=== PATIENT | male | born 1995 | race Caucasian/White ===

== ENCOUNTER 2020-10-02 03:24 | Observation (INO) ==
[2020-10-02] MEDS ORDERED: SODIUM CHLORIDE 0.9% 1000ML 1,000 ML IV SCH (03:45)
[2020-10-02 03:56] LABS: Basophils # (auto) 0.05 K/uL (0-0.2); Basophils % (auto) 0.5 %; Eosinophils # (auto) 0.11 K/uL (0-0.5); Eosinophils % (auto) 1.2 %; Hematocrit (blood only) 51.4 % (42-52); Hemoglobin 17.6 g/dL (14.0-18.0); Immature Granulocytes # (auto) 0.04 K/uL (0.00-0.02); Immature Granulocytes % (auto) 0.4 %; Lymphocytes # (auto) 2.25 K/uL (1.2-3.4); Lymphocytes % (auto) 24.3 %; Mean Corpuscular Hemoglobin 29.7 pg (25-34); Mean Corpuscular Hgb Conc 34.2 g/dL (32-36); Mean Corpuscular Volume 86.7 fL (80-100); Mean Platelet Volume 10.3 fL (7.4-10.4); Monocytes # (auto) 0.84 K/uL (0.11-0.59); Monocytes % (auto) 9.1 %; Neutrophils # (auto) 5.96 K/uL (1.4-6.5); Neutrophils % (auto) 64.5 %; Platelet Count 229 K/uL (130-400); RDW Coefficient of Variation 13.2 % (11.5-14.5); RDW Standard Deviation 41.9 fL (36.4-46.3); Red Blood Count 5.93 M/uL (4.7-6.1); White Blood Count 9.25 K/uL (4.8-10.8)
[2020-10-02 04:11] LABS: INR 1.1 (0.9-1.1); Partial Thromboplastin Ratio 1.1; Partial Thromboplastin Time 29.3 Seconds (21.0-31.0); Prothrombin Time 11.1 Seconds (9.0-12.0)
[2020-10-02 04:16] LABS: Alanine Aminotransferase 119 U/L (12-78); Albumin Level 4.1 gm/dl (3.4-5.0); Aspartate Aminotransferase 46 U/L (15-37); BUN Creatinine Ratio 15.3 (10-20); Blood Urea Nitrogen 17 mg/dl (7-18); Calcium 8.6 mg/dl (8.5-10.1); Carbon Dioxide 26 mmol/L (21-32); Chloride 108 mmol/L (98-107); Est GFR (African American) 102.3; Est GFR (Non-African American) 88.3; Glucose 106 mg/dl (70-99); Magnesium 2.4 mg/dl (1.8-2.4); Sodium 139 mmol/L (136-145)
[2020-10-02 04:27] LABS: Albumin Globulin Ratio 1.2 (0.9-2); Alkaline Phosphatase 97 U/L (45-117); Bilirubin,Total 0.5 mg/dl (0.2-1); C Reactive Protein 0.49 mg/dl (0-0.29); Globulin 3.5 gm/dl (2.5-4.0); Total Protein 7.6 gm/dl (6.4-8.2); Troponin I < 0.015 ng/ml (0-0.045)
[2020-10-02 05:02] LABS: Lyme Ab IgG w/WB Rflx Negative (Negative); Lyme Ab IgM w/WB Rflx Negative (Negative)
[2020-10-02 05:21] LABS: Appearance Urine Clear (Clear); Bilirubin Urine Negative (Negative); Blood Urine Negative (Negative); Color Urine Yellow; Glucose Urine UA Negative (Negative); Ketones Urine Negative (Negative); Leukocyte Esterase Urine Negative (Negative); Nitrite Urine Negative (Negative); Protein Urine Negative (Negative); Specific Gravity Urine 1.012 (1.000-1.030); Urobilinogen Urine Negative (Negative); pH Urine 5.5 (4.5-7.5)
[2020-10-02 05:41] LABS: Amphetamines+Metham, Urine Neg (Neg); Barbiturates, Urine Neg (Neg); Benzodiazepine, Urine Neg (Neg); Cocaine, Urine Neg (Neg); MDMA (Ecstacy), Urine Neg (Neg); Methadone, Urine Neg (Neg); Opiate, Urine Neg (Neg); Phencyclidine, Urine Neg (Neg)
[2020-10-02] MEDS ORDERED: GADOBUTROL 65ML VIAL IV ONE ×2 (06:09→22:16)
--- NOTE | 2020-10-02 06:48 | Emergency Department Note ---
History of Present Illness General Chief complaint: Illness Stated complaint: ILL- HAVING TROUBLE TALKING,FACE DROOPY Time Seen by Provider: 10/02/20 03:36 History of Present Illness This is a 25 year old male presenting to the emergency department for evaluation of slurring of his speech and possible facial droop. The patient has a history of Fzyasfr-Yrcxf-Uxhov disease and has had 2 episodes in the past similar to this. His first was in 2004 and occurred about 1 month after he had an appendectomy. The second was in 2008 occurring roughly 3 weeks after diagnosis of infectious mononucleosis. The patient believes that he may have had COVID-19 1 month ago when his Dad tested positive, but he himself did not get tested. The 2 previous times he has had slurring of his speech he ended up admitted to [facility] in [place] and required high doses of steroids, similar to treatment of a multiple sclerosis flare, and ultimately returned to normal. The patient was previously following with pediatric neurology, but now that he is an adult has not followed with anyone recently. He has had multiple MRIs in the past, which have shown findings "most likely represent encephalopathy associ ated with Tfkhmhc-Gveqe-Zjrbf disease". The patient states that his symptoms began roughly 1 hour prior to arrival and have almost completely improved now that he is here in the ER. He has not had any fevers or chills. He has not had any difficulty moving his arms or legs. No chest pain, chest tightness, shortness of breath. Home Medications Medication Instructions Recorded Confirmed Type No Known Home Medications 10/02/20 10/02/20 History Allergies Allergy/AdvReac Type Severity Reaction Status Date / Time amoxicillin Allergy HIVES Verified 10/02/20 04:18 clavulanic acid Allergy HIVES Verified 10/02/20 04:18 Past Med/Surg History Medical History (Updated 10/03/20 @ 03:04 by Brian Ballesteros PA-C) Gbjpals-Rouan-Slpqe disease Leukoencephalopathy Surgical History History of appendectomy Family History (Updated 10/02/20 @ 09:16 by Checo Gold DO) Other Family history non-contributory Social History (Updated 10/02/20 @ 09:18 by Checo G. Case, DO) Smoking Status: Current some day smoker Second Hand Exposure: No; Do You Dip or Chew Tobacco: No; Tobacco Cessation Education Requested by Patient: No Hx Alcohol Use: Yes Alcohol type: hard liquor Hx Substance Use: Yes Non-Prescribed Medications: Marijuana Last Used Trent bstance: Unknown Preferred Language: Urdu Communication Ability: Effective Paste Thinner Required: No Beliefs That Will Affect Care: None Current Living Situation: Parent Other Information That Helps Us Care for You: No Feels Safe at Home: Yes Safety Concerns: Feels Safe At This Time Assistive Devices: None Review of Systems A total of 10 systems reviewed and were otherwise negative Physical Exam Vital Signs Vital Signs - 24 hr 10/02/20 03:28 10/02/20 04:16 10/02/20 06:12 Temperature 36.3 C L Temperature Source Temporal Artery Scan Pulse Rate 81 Pulse Rate [Apical] 79 89 Pulse Rhythm Regular Pulse Rhythm [Apical] Pulse Strength Normal Respiratory Rate 20 20 18 Respiratory Effort / Characteristics Non-Labored Spontaneous Non-Labored Spontaneous Non-Labored Spontaneous Respiratory Depth Normal Normal Normal Respiratory Pattern Regular Blood Pressure 143/84 H Blood Pressure [Left Arm] 138/76 135/85 Blood Pressure Mean 103 Blood Pressure Mean [Left Arm] 96 101 Blood Pressure Position Sitting Blood Pressure Position [Left Arm] Sitting Pulse Oximetry 97 97 96 Oxygen Delivery Method Room Air Room Air Room Air Sepsis Recent Fever Within 48 Hours No Sepsis New/Unexplained Change in Mental Status N/A Sepsis Action Taken by Nursing No Action Required 10/02/20 07:29 10/02/20 08:21 10/02/20 08:30 Temperature Temperature Source Pulse Rate 75 Pulse Rate [Apical] 81 76 Pulse Rhythm Pulse Rhythm [Apical] Regular Pulse Strength Respiratory Rate 16 16 16 Respiratory Effort / Characteristics Non-Labored Spontaneous Non-Labored Spontaneous Respiratory Depth Normal Normal Respiratory Pattern Blood Pressure 129/77 Blood Pressure [Left Arm] 126/65 116/81 Blood Pressure Mean 97 Blood Pressure Mean [Left Arm] 85 92 Blood Pressure Position Blood Pressure Position [Left Arm] Sitting Pulse Oximetry 97 98 97 Oxygen Delivery Method Room Air Room Air Sepsis Recent Fever Within 48 Hours Sepsis New/Unexplained Change in Mental Status Sepsis Action Taken by Nursing 10/02/20 09:01 Temperature Temperature Source Pulse Rate Pulse Rate [Apical] Pulse Rhythm Pulse Rhythm [Apical] Pulse Strength Respiratory Rate Respiratory Effort / Characteristics Respiratory Depth Respiratory Pattern Blood Pressure 134/74 Blood Pressure [Left Arm] Blood Pressure Mean 87 Blood Pressure Mean [Left Arm] Blood Pressure Position Blood Pressure Position [Left Arm] Pulse Oximetry Oxygen Delivery Method Sepsis Recent Fever Within 48 Hours Sepsis New/Unexplained Change in Mental Status Sepsis Action Taken by Nursing VITALS: Vitals are noted on the nurse's note and reviewed by myself. Vital signs stable. GENERAL: Well-developed, well-nourished, white male, who is in no acute distress and resting comfortably. Patient is cooperative with the examination. HEAD: Normocephalic atraumatic. EARS: External ear normal. External auditory canals clear, tympanic membranes pearly reddy without erythema or effusion bilaterally. EYES: Pupils equal round and reactive to light and accommodation. Conjunctivae without injection, sclerae without icterus. Extraocular movements intact. NOSE: Patent, turbinates without inflammation or discharge. MOUTH: Mucous membranes moist. Tonsils are not enlarged. Pharynx without erythema, blood, or exudate. Uvula midline. Airway patent. NECK: Supple without nuchal rigidity. No lymphadenopathy. No thyromegaly. Cervical spine is nontender. HEART: Regular rate and rhythm without murmurs gallops or rubs. LUNGS: Clear to auscultation bilaterally without wheezes, rales or rhonchi. No retractions or accessory muscle use. ABDOMEN: Positive normal bowel sounds x 4. Soft, nontender, without masses or organomegaly. No guarding or rebound tenderness. MUSCULOSKELETAL: No muscle atrophy, erythema, or edema noted. Full range of motion in all extremities. No tenderness to palpation. Strength 5/5 throughout. NEURO: Patient was alert and oriented to person place and time. CN II through XII grossly intact. No focal neurological deficits. Deep tendon reflexes 2+ throughout. Stroke scale 0. SKIN: The skin was without rashes, erythema, edema, or bruising. Capillary refill less than 2 seconds. Course Administered Medications Discontinued Medications Gadobutrol (Gadobutrol 65ml Vial) 9.8 ml IV ONCE ONE Stop: 10/02/20 06:10 Last Admin: 10/02/20 05:55 Dose: 9.8 ml Documented by: [id number] Gadobutrol (Gadobutrol 65ml Vial) 9.8 ml IV ONCE ONE Stop: 10/02/20 22:17 Last Admin: 10/02/20 22:17 Dose: 9.8 ml Documented by: [id number] Sodium Chloride (Nss 1000ml) 1,000 mls @ 999 mls/hr IV .Q1H1M VITA Stop: 10/02/20 04:45 Last Infusion: 10/02/20 04:50 Dose: 0 mls/hr Documented by: [id number] Admin: 10/02/20 03:55 Dose: 999 mls/hr Documented by: [id number] Medical Decision Making Differential Diagnosis The differential diagnosis includes, but is not limited to: Stroke, chronic neurologic disease, MS, acute intracranial bleed, meningitis, encephalitis, mass or mass effect, sinusitis, infection, tumor, headache, temporal arteritis and carbon monoxide exposure, and migraine. Laboratory Data Result diagrams: 10/02/20 03:30 10/02/20 03:30 Lab Results 10/02/20 10/02/20 10/02/20 Range/Units 03:30 03:30 03:30 WBC 9.25 (4.8-10.8) K/uL RBC 5.93 (4.7-6.1) M/uL Hgb 17.6 (14.0-18.0) g/dL Hct 51.4 (42-52) % MCV 86.7 (80-100) fL MCH 29.7 (25-34) pg MCHC 34.2 (32-36) g/dL RDW Std Deviation 41.9 (36.4-46.3) fL RDW Coeff of Jewel 13.2 (11.5-14.5) % Plt Count 229 (130-400) K/uL MPV 10.3 (7.4-10.4) fL Immature Gran % (Auto) 0.4 % Neut % (Auto) 64.5 % Lymph % (Auto) 24.3 % Glenn % (Auto) 9.1 % Eos % (Auto) 1.2 % Baso % (Auto) 0.5 % Neut # (Auto) 5.96 (1.4-6.5) K/uL Lymph # (Auto) 2.25 (1.2-3.4) K/uL Glenn # (Auto) 0.84 H (0.11-0.59) K/uL Eos # (Auto) 0.11 (0-0.5) K/uL Baso # (Auto) 0.05 (0-0.2) K/uL Immature Gran # (Auto) 0.04 H (0.00-0.02) K/uL ESR 2 (0-14) mm/hr PT 11.1 (9.0-12.0) Seconds INR 1.1 (0.9-1.1) APTT 29.3 (21.0-31.0) Seconds PTT Ratio 1.1 Sodium (136-145) mmol/L Potassium (3.5-5.1) mmol/L Chloride (98-107) mmol/L Carbon Dioxide (21-32) mmol/L Anion Gap (3-11) BUN (7-18) mg/dl Creatinine (0.6-1.4) mg/dl Est Cr Clr Drug Dosing ml/min Est GFR ( Amer) Est GFR (Non-Af Amer) BUN/Creatinine Ratio (10-20) Glucose (70-99) mg/dl Calcium (8.5-10.1) mg/dl Magnesium (1.8-2.4) mg/dl Total Bilirubin (0.2-1) mg/dl AST (15-37) U/L ALT (12-78) U/L Alkaline Phosphatase (45-117) U/L Troponin I (0-0.045) ng/ml C-Reactive Protein (0-0.29) mg/dl Total Protein (6.4-8.2) gm/dl Albumin (3.4-5.0) gm/dl Globulin (2.5-4.0) gm/dl Albumin/Globulin Ratio (0.9-2) TSH (0.300-4.500) uIu/ml Free T4 (0.8-1.6) ng/dl Specimen Hemolysis Urine Color Urine Appearance (Clear) Urine pH (4.5-7.5) Ur Specific [place] (1.000-1.030) Urine Protein (Negative) Urine Glucose (UA) (Negative) Urine Ketones (Negative) Urine Blood (Negative) Urine Nitrite (Negative) Urine Bilirubin (Negative) Urine Urobilinogen (Negative) Ur Leukocyte Esterase (Negative) Urine Opiates Screen (Neg) Ur Methadone, Qual (Neg) Urine Barbiturates (Neg) Ur Phencyclidine (PCP) (Neg) U Amphetamin/Meth Scrn (Neg) MDMA (Ecstasy) Screen (Neg) U Benzodiazepines Scrn (Neg) Ur Cocaine Metabolite (Neg) U Marijuana (THC) Screen (Neg) Ethyl Alcohol mg/dL (0-3) mg/dl Lyme Disease IgG Ab (Negative) Lyme Disease IgM Ab (Negative) SARS-CoV-2 Ag (Rapid) (Negative) 10/02/20 10/02/20 10/02/20 Range/Units 03:30 03:30 03:55 WBC (4.8-10.8) K/uL RBC (4.7-6.1) M/uL Hgb (14.0-18.0) g/dL Hct (42-52) % MCV (80-100) fL MCH (25-34) pg MCHC (32-36) g/dL RDW Std Deviation (36.4-46.3) fL RDW Coeff of Jewel (11.5-14.5) % Plt Count (130-400) K/uL MPV (7.4-10.4) fL Immature Gran % (Auto) % Neut % (Auto) % Lymph % (Auto) % Glenn % (Auto) % Eos % (Auto) % Baso % (Auto) % Neut # (Auto) (1.4-6.5) K/uL Lymph # (Auto) (1.2-3.4) K/uL Glenn # (Auto) (0.11-0.59) K/uL Eos # (Auto) (0-0.5) K/uL Baso # (Auto) (0-0.2) K/uL Immature Gran # (Auto) (0.00-0.02) K/uL ESR (0-14) mm/hr PT (9.0-12.0) Seconds INR (0.9-1.1) APTT (21.0-31.0) Seconds PTT Ratio Sodium 139 (136-145) mmol/L Potassium 4.0 (3.5-5.1) mmol/L Chloride 108 H (98-107) mmol/L Carbon Dioxide 26 (21-32) mmol/L Anion Gap 5.0 (3-11) BUN 17 (7-18) mg/dl Creatinine 1.14 (0.6-1.4) mg/dl Est Cr Clr Drug Dosing 122.0 ml/min Est GFR ( Amer) 102.3 Est GFR (Non-Af Amer) 88.3 BUN/Creatinine Ratio 15.3 (10-20) Glucose 106 H (70-99) mg/dl Calcium 8.6 (8.5-10.1) mg/dl Magnesium 2.4 (1.8-2.4) mg/dl Total Bilirubin 0.5 (0.2-1) mg/dl AST 46 H (15-37) U/L ALT 119 H (12-78) U/L Alkaline Phosphatase 97 (45-117) U/L Troponin I < 0.015 (0-0.045) ng/ml C-Reactive Protein 0.49 H (0-0.29) mg/dl Total Protein 7.6 (6.4-8.2) gm/dl Albumin 4.1 (3.4-5.0) gm/dl Globulin 3.5 (2.5-4.0) gm/dl Albumin/Globulin Ratio 1.2 (0.9-2) TSH 4.560 H (0.300-4.500) uIu/ml Free T4 1.30 (0.8-1.6) ng/dl Specimen Hemolysis Urine Color Urine Appearance (Clear) Urine pH (4.5-7.5) Ur Specific [place] (1.000-1.030) Urine Protein (Negative) Urine Glucose (UA) (Negative) Urine Ketones (Negative) Urine Blood (Negative) Urine Nitrite (Negative) Urine Bilirubin (Negative) Urine Urobilinogen (Negative) Ur Leukocyte Esterase (Negative) Urine Opiates Screen (Neg) Ur Methadone, Qual (Neg) Urine Barbiturates (Neg) Ur Phencyclidine (PCP) (Neg) U Amphetamin/Meth Scrn (Neg) MDMA (Ecstasy) Screen (Neg) U Benzodiazepines Scrn (Neg) Ur Cocaine Metabolite (Neg) U Marijuana (THC) Screen (Neg) Ethyl Alcohol mg/dL < 3.0 (0-3) mg/dl Lyme Disease IgG Ab Negative (Negative) Lyme Disease IgM Ab Negative (Negative) SARS-CoV-2 Ag (Rapid) (Negative) 10/02/20 10/02/20 10/02/20 Range/Units 05:10 05:10 08:21 WBC (4.8-10.8) K/uL RBC (4.7-6.1) M/uL Hgb (14.0-18.0) g/dL Hct (42-52) % MCV (80-100) fL MCH (25-34) pg MCHC (32-36) g/dL RDW Std Deviation (36.4-46.3) fL RDW Coeff of Jewel (11.5-14.5) % Plt Count (130-400) K/uL MPV (7.4-10.4) fL Immature Gran % (Auto) % Neut % (Auto) % Lymph % (Auto) % Glenn % (Auto) % Eos % (Auto) % Baso % (Auto) % Neut # (Auto) (1.4-6.5) K/uL Lymph # (Auto) (1.2-3.4) K/uL Glenn # (Auto) (0.11-0.59) K/uL Eos # (Auto) (0-0.5) K/uL Baso # (Auto) (0-0.2) K/uL Immature Gran # (Auto) (0.00-0.02) K/uL ESR (0-14) mm/hr PT (9.0-12.0) Seconds INR (0.9-1.1) APTT (21.0-31.0) Seconds PTT Ratio Sodium (136-145) mmol/L Potassium (3.5-5.1) mmol/L Chloride (98-107) mmol/L Carbon Dioxide (21-32) mmol/L Anion Gap (3-11) BUN (7-18) mg/dl Creatinine (0.6-1.4) mg/dl Est Cr Clr Drug Dosing ml/min Est GFR ( Amer) Est GFR (Non-Af Amer) BUN/Creatinine Ratio (10-20) Glucose (70-99) mg/dl Calcium (8.5-10.1) mg/dl Magnesium (1.8-2.4) mg/dl Total Bilirubin (0.2-1) mg/dl AST (15-37) U/L ALT (12-78) U/L Alkaline Phosphatase (45-117) U/L Troponin I (0-0.045) ng/ml C-Reactive Protein (0-0.29) mg/dl Total Protein (6.4-8.2) gm/dl Albumin (3.4-5.0) gm/dl Globulin (2.5-4.0) gm/dl Albumin/Globulin Ratio (0.9-2) TSH (0.300-4.500) uIu/ml Free T4 (0.8-1.6) ng/dl Specimen Hemolysis Urine Color Yellow Urine Appearance Clear (Clear) Urine pH 5.5 (4.5-7.5) Ur Specific [place] 1.012 (1.000-1.030) Urine Protein Negative (Negative) Urine Glucose (UA) Negative (Negative) Urine Ketones Negative (Negative) Urine Blood Negative (Negative) Urine Nitrite Negative (Negative) Urine Bilirubin Negative (Negative) Urine Urobilinogen Negative (Negative) Ur Leukocyte Esterase Negative (Negative) Urine Opiates Screen Neg (Neg) Ur Methadone, Qual Neg (Neg) Urine Barbiturates Neg (Neg) Ur Phencyclidine (PCP) Neg (Neg) U Amphetamin/Meth Scrn Neg (Neg) MDMA (Ecstasy) Screen Neg (Neg) U Benzodiazepines Scrn Neg (Neg) Ur Cocaine Metabolite Neg (Neg) U Marijuana (THC) Screen Pos H (Neg) Ethyl Alcohol mg/dL (0-3) mg/dl Lyme Disease IgG Ab (Negative) Lyme Disease IgM Ab (Negative) SARS-CoV-2 Ag (Rapid) Negative (Negative) Imaging Data Radiologist's Impression: Brain MRI WITH AND WITHOUT CONTRAST HISTORY: Aphasia. 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 TECHNIQUE: Multiplanar multisequence MRI of the brain was performed both before and after the intravenous administration of contrast. COMPARISON STUDY: None. FINDINGS: Nearly symmetric areas of restricted diffusion within the bilateral centrum semiovale which measure up to 4.0 x 1.6 cm on the right. There is corresponding T2 hyperintensities locations. The ventricles and sulci are within normal limits. There is no mass, hematoma, midline shift. The orbits are unremarkable. Paranasal sinuses and mastoid air cells are clear. The major vascular flow voids at the skull base are well-maintained. Postcontrast sequences show no areas of abnormal enhancement. IMPRESSION: Symmetric areas of restricted diffusion involving the bilateral posterior frontal centrum semiovale. Findings suggest an acute leukoencephalopathy of uncertain etiology versus infarcts. Clinical correlation and comparison to prior studies would be helpful to assess for chronicity. MDM Narrative Physical exam and history were performed. Nursing notes, EMR, and Medication List were personally reviewed. Patient appears to have vague neurologic symptoms bringing him to the ER. He h as had symptoms like this twice previously. On examination his stroke scale is 0 and he does not have appreciable significant neurologic deficit. In respect to his history IV access was established and labs were obtained. His blood work is as above and was reviewed. He does not have a significantly elevated white blood cell count, gross anemia, bandemia, or significant electrolyte imbalance. Sed rate is 2. CRP is slightly elevated at 0.49. Transaminases are not diagnostic. TSH shows euthyroid state. Urine is without evidence of infection. Drug abuse screen is positive for marijuana. Alcohol is negative. Lyme and Covid are both negative. On reevaluation the patient appears well and nontoxic. Because of his history I did review the [facility] records at length. I did speak with the [facility] neurologist, Dr Lord, who recommended MRI with and without contrast. MRI was performed with results as above. The patient appears to have acute Leukoencephalopathy. I did discuss this with Dr Lord, who recommended admission so that he can be further evaluated. The case was discussed with the on-call hospitalist service, who agreed to evaluate the patient here in the ER. Please see their dictation for further patient course, plan, and disposition. The chart was completed utilizing [employer] Speech Voice Recognition Software. Grammatical errors, random word insertions, pronoun errors, and incomplete sentences are an occasional consequence of this system due to software limitations, ambient noise, and hardware issues. Any formal questions or concerns about the content, text, or information contained within the body of this dictation should be directly addressed to the provider for clarification. . Impression & Plan Leukoencephalopathy, Atqilmi-Ntbaj-Rnvln disease, Marijuana abuse Discharge Plan Visit Data Chief Complaint: Illness Stated Complaint: ILL- HAVING TROUBLE TALKING,FACE DROOPY ED Provider: [facility] Midlevel Provider: Brian Ballesteros Discharge Problem: Leukoencephalopathy, Kljbghy-Iiaiz-Jtngq disease, Marijuana abuse Patient Disposition: Admitted As Inpatient Discharge Instructions Interventions: ED Discharge Assessment Last Done: 10/02/20 10:11
--- NOTE | 2020-10-02 08:30 | Magnetic Resonance Report ---
Brain MRI WITH AND WITHOUT CONTRAST HISTORY: Aphasia. 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 TECHNIQUE: Multiplanar multisequence MRI of the brain was performed both before and after the intrave nous administration of contrast. COMPARISON STUDY: None. FINDINGS: Nearly symmetric areas of restricted diffusion within the bilateral centrum semiovale which measure up to 4.0 x 1.6 cm on the right. There is corresponding T2 hyperintensities locations. The v entricles and sulci are within normal limits. There is no mass, hematoma, midline shift. The orbits a re unremarkable. Paranasal sinuses and mastoid air cells are clear. The major vascular flow voids at the skull base are well-maintained. Postcontrast sequences show no areas of abnormal enhancement. IMPRESSION: Symmetric areas of restricted diffusion involving the bilateral posterior frontal centrum semiovale. Findings suggest an acute leukoencephalopathy of uncertain etiology versus infarcts. Clinical correla tion and comparison to prior studies would be helpful to assess for chronicity. ACT 112: Negative or not required by law. Electronically signed by: Ben Damon M.D. 10/02/2020 8:46 AM
--- NOTE | 2020-10-02 09:30 | History & Physical Report ---
Date of Service October 02, 2020 Assessment & Plan (1) Leukoencephalopathy: Slurred speech Left Facial numbness Will admit to Med/Surg Neuro check every 1 hour x4, then q shift thereafter Consult Neurology, Dr. Lord from [facility] [place] aware MRI images sent to [facility] this AM, Patient aware Tylenol PRN for Headache (2) Uirlytd-Vygms-Tgbnq disease: Followup as outpatient with [facility] neurology (3) DVT prophylaxis: SCD's ordered No Chemical prophylaxis pending neurology consult (4) Marijuana abuse: Counseled patient on risks of continued use History of Present Illness Chief Complaint: Slurred Speech, Leukoencephalopathy Primary Care Provider: Shanon Macedo MD Renato Schultz is a pleasant 25 yo CM who presented to the ER early this AM with complaints of Aphasia and slurred speech. 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 His first episode was in 2004 following a bout of infectious mononucleosis, and his second episode was in 2008 following an appendectomy. He has been seeing [facility] since 2004, and does have multiple brain MRI exams some of which show leukoenceophalopathy, and some of which show resolution of this finding. In regards to his current episode, he states that he had a single alcoholic beverage last night, and developed symptoms while playing video games at approximately 2 AM. He states he noted slurring of his words, and noticed left sided face numbness. He states, "out of an abundance of caution," he presented to the ER. Upon arrival, he was noted to have a normal physical exam. His lab numbers were unremarkable, however, an MRI of the brain did show findings of leukoencephalopathy. The ER did notify Dr. Lord of [facility], and the MRI images were sent to [facility] for review. At the time I saw the patient, he was feeling better, and states his symptoms had resolved. He denies any headaches, seizures, syncope, fevers, excessive alcohol consumption, or trauma. He admits to smoking marijuana approximately 48 hours prior to his episode, but denies any further drug use. His Covid test in the ER was normal. He denies any other symptoms at this time. Allergies Allergy/AdvReac Type Severity Reaction Status Date / Time amoxicillin Allergy HIVES Verified 10/02/20 04:18 clavulanic acid Allergy HIVES Verified 10/02/20 04:18 Home Medications Medication Instructions Recorded Confirmed Type No Known Home Medications 10/02/20 10/02/20 History Past Med/Surg History Medical History (Updated 10/02/20 @ 09:28 by Checo Gold, DO) Xsupuwv-Hnjym-Zyuqk disease Leukoencephalopathy Surgical History History of appendectomy Family History (Updated 10/02/20 @ 09:16 by Checo Gold, ) Other Family history non-contributory Social History (Updated 10/02/20 @ 09:18 by Checo Gold, DO) Smoking Status: Current some day smoker Second Hand Exposure: No; Do You Dip or Chew Tobacco: No; Tobacco Cessation Education Requested by Patient: No Hx Alcohol Use: Yes Alcohol type: hard liquor Hx Substance Use: Yes Non-Prescribed Medications: Marijuana Last Used Substance: Unknown Preferred Language: Setswana Communication Ability: Effective Scalehouse Attendant Required: No Beliefs That Will Affect Care: None Current Living Situation: Parent Other Information That Helps Us Care for You: No Feels Safe at Home: Yes Safety Concerns: Feels Safe At This Time Assistive Devices: Glasses Review of Systems Review of Systems: All systems reviewed & are unremarkable except as noted in HPI & below Physical Exam Constitutional: WD/WN, vitals as above Eyes: PERRL, conjunctivae normal, anicteric sclerae ENMT: external ear and nose normal, oropharynx normal Neck: trachea midline, no thyromegaly Respiratory: normal respiratory effort, lungs clear to auscultation Cardiovascular: RRR, no murmur, no edema Chest (Breasts): normal inspection/palpation of breasts Gastrointestinal (Abdomen): normal bowel sounds, soft, nontender, no he patosplenomegaly Musculoskeletal: no cyanosis or clubbing, extremities motor strength 5/5 Skin: no rashes, warm and dry Neurologic: PERRL, EOMI, accommodation nl, no face palsy, no dysarthria Psychiatric: A+Ox3, euthymic affect Lymphatic: no cervical lymphadenopathy Results & Data Results & Data ([facility]) Vital Signs (Past 12 Hours) Vital Signs Temp Pulse Pulse Resp BP BP Pulse Ox 10/02/20 08:30 75 16 129/77 97 10/02/20 08:21 76 16 116/81 98 10/02/20 07:29 81 16 126/65 97 10/02/20 06:12 89 18 135/85 96 10/02/20 04:16 79 20 138/76 97 10/02/20 03:28 36.3 C L 81 20 143/84 H 97 Laboratory Results 10/02/20 03:30 10/02/20 03:30 INR 1.1 (0.9-1.1) 10/02/20 03:30 Diagnostic Findings Brain MRI WITH AND WITHOUT CONTRAST HISTORY: Aphasia. 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 TECHNIQUE: Multiplanar multisequence MRI of the brain was performed both before and after the intravenous administration of contrast. COMPARISON STUDY: None. FINDINGS: Nearly symmetric areas of restricted diffusion within the bilateral centrum semiovale which measure up to 4.0 x 1.6 cm on the right. There is corresponding T2 hyperintensities locations. The ventricles and sulci are within normal limits. There is no mass, hematoma, midline shift. The orbits are unremarkable. Paranasal sinuses and mastoid air cells are clear. The major vascular flow voids at the skull base are well-maintained. Postcontrast sequences show no areas of abnormal enhancement. IMPRESSION: Symmetric areas of restricted diffusion involving the bilateral posterior frontal centrum semiovale. Findings suggest an acute leukoencephalopathy of uncertain etiology versus infarcts. Clinical correlation and comparison to prior studies would be helpful to assess for chronicity. Code Status & VTE Plan Code Status Full code VTE Prophylaxis Plan VTE Prophylaxis will be ordered: Yes PG Care Time/CCT Total # of Minutes Spent Total Time Spent with Patient: Total time spent is greater than 50% in c oordination of care (as documented) at patient's floor/unit and/or counseling patient: 45 minutes Coding Level of Care Code 07613 OBS Care - Level 3 Diagnoses Leukoencephalopathy G93.49 Jpldfxw-Scdkl-Nbqtc disease G60.0 DVT prophylaxis Z29.9 Marijuana abuse F12.10 Time Spent (min) 45
--- NOTE | 2020-10-02 10:02 | Electrocardiogram Report ---
Test Reason : Blood Pressure : / mmHG Vent. Rate : 076 BPM Atrial Rate : 076 BPM P-R Int : 166 ms QRS Dur : 082 ms QT Int : 348 ms P-R-T Axes : 041 046 017 degrees QTc Int : 391 ms Normal sinus rhythm Normal ECG No previous ECGs available Confirmed by Girish Maynard ([id number]) on 10/02/2020 10:01:48 AM Referred By: Confirmed By:Girish Maynard
[2020-10-02] MEDS ORDERED: ACETAMINOPHEN 325 MG TAB PO PRN (10:47)
--- NOTE | 2020-10-02 16:16 | Neurology Consultation ---
Date of Consultation October 02, 2020 Assessment & Plan (1) Leukoencephalopathy: 1. treat with IV solumetrol 1 g x 3 days- out patient infusion could be arranged. dose 1 today, then tomorrow and 3rd could be outpatient 2. day after third infusion start prednisone 80 mg x 2 days, then 60 mg x 4 days, then 40 mg x 4 days, then 20 mg x4 days, then 10 mg x 4 days then stop 3. MRI brain reviewed an pushed to [facility] for further comparison 4. MRI c spine r/o any further plaques or lesions 5. follow up with neurology will be arranged with Dr Grant at [facility] in out patient setting 6. discharge when medically stable Present on Admission?: Yes (2) Jvqeece-Dxruj-Vvhqn disease: 1. continue current treatment plan can be assess at neurology visit as outpatient Present on Admission?: Yes Supervising Physician Co-Signing Physician Notes I have seen and discussed above patient with Dr Judie Lord, neurology. See my dict note. GUTIERREZ Lord MD History of Present Illness Reason for Consultation: Leukoencephalopathy, Slurred speech Requesting Physician: Ben Zaidi DO Attending Physician: Ben Zaidi DO History of Present Illness Renato is a 25 year old male who presented to the ER 10/02/2019 am with complaints of aphasia and slurred speech. He has a PMH- Charcot-Tawana Tooth, and has had 2 prior episodes that have been similar to this. His first episode was in 2004 following a bout of infectious mononucleosis, and his second episode was in 2008 following an appendectomy which according to him "burst". He was seen at [facility] since 2004, and does have multiple brain MRI exams some of which show leukoenceophalopathy, and some of which show resolution of this finding. He had a single alcoholic beverage last night, and developed symptoms while playing video games at approximately 2 AM. He had some slurring of his words, and noticed left sided face numbness. When he arrived at the ED his exam was normal physical exam. The MRI of the brain did show findings of leukoencephalopathy.He had a recurrent event about 10a lasting only a few minutes. He admits to smoking marijuana approximately 48 hours prior to his episode, but denies any further drug use. In the past when he had similar symptoms he was treated with IV steroids and then a taper afterwards. denies CP, SOB, abdominal pain, one sided weakness, vision changes, N, V, new bowel or bladder symptoms. Allergies Allergy/AdvReac Type Severity Reaction Status Date / Time amoxicillin Allergy HIVES Verified 10/02/20 04:18 clavulanic acid Allergy HIVES Verified 10/02/20 04:18 Home Medications Medication Instructions Recorded Confirmed Type No Known Home Medications 10/02/20 10/02/20 History Patient History Medical History (Updated 10/02/20 @ 09:28 by Checo Gold DO) Ldhkqut-Cbfiv-Uowpp disease Leukoencephalopathy Surgical History History of appendectomy Family History (Updated 10/02/20 @ 09:16 by Checo Gold DO) Other Family history non-contributory Social History (Updated 10/02/20 @ 09:18 by Checo Gold DO) Smoking Status: Current some day smoker Second Hand Exposure: No; Do You Dip or Chew Tobacco: No; Tobacco Cessation Education Requested by Patient: No Hx Alcohol Use: Yes Alcohol type: hard liquor Hx Substance Use: Yes Non-Prescribed Medications: Marijuana Last Used Substance: Unknown Preferred Language: Slovenian Communication Ability: Effective Cruise Counselor Required: No Beliefs That Will Affect Care: None Current Living Situation: Parent Other Information That Helps Us Care for You: No Feels Safe at Home: Yes Safety Concerns: Feels Safe At This Time Assistive Devices: None Review of Systems Review of Systems: All systems reviewed & are unremarkable except as noted in HPI & below and All systems reviewed & are unremarkable except as noted in S ubjective Physical Exam Physical Exam: Physical Exam: Constitutional: appearance nourished, healthy and normal Ears, Nose, Mouth and Throat: mucous membranes moist, no injection and skin normal, eyes normal Cardiovascular: normal S-1 and S-2 and regular rate and rhythm Respiratory: clear to auscultation (CTA) and no rales, rhonchi or wheeze Musculoskeletal: no peripheral edema and good distal pulses Skin: no stigmata of neurocutaneous disease noted and normal and intact Eyes: extraocular muscles intact (EOMI) and pupils equal, round and reactive to light (PERRL) NEUROLOGIC EXAMINATION: Mental status: Alert and interactive Oriented to full date and location Oriented to person Speech fluent with no evidence of aphasia Cranial Nerves Normal findings for Cranial Nerves II - XII Reflexes: Deep tendon reflexes were decreased LE, down going toes Sensory: light touch Coordination: finger to nose no bi pass Gait/Stance: Posture normal. Gait normal: with steady with steps, slight toe walking and tandem gait. Motor: Negative for pronator drift of out stretched arms with eyes closed. Strength: hand director pharmaceutical biceps triceps bilaterally 5/5, hip flex plantar flex ext 5/5 Results & Data ([facility]) Vital Signs (Past 12 Hours) Vital Signs Temp Pulse Pulse Pulse Resp BP BP 10/02/20 15:42 36.3 C L 79 15 130/81 10/02/20 12:16 36.6 C 83 20 106/71 10/02/20 10:34 37.5 C 93 H 20 118/70 10/02/20 10:00 119/67 10/02/20 09:58 113/56 L 10/02/20 09:31 118/74 10/02/20 09:01 134/74 10/02/20 08:30 75 16 129/77 10/02/20 08:21 76 16 116/81 10/02/20 07:29 81 16 126/65 10/02/20 06:12 89 18 135/85 10/02/20 04:16 79 20 138/76 Pulse Ox 10/02/20 15:42 97 10/02/20 12:16 93 10/02/20 10:34 94 10/02/20 10:00 95 10/02/20 09:58 95 10/02/20 09:31 10/02/20 09:01 10/02/20 08:30 97 10/02/20 08:21 98 10/02/20 07:29 97 10/02/20 06:12 96 10/02/20 04:16 97 Laboratory Results Abnormal lab results 10/02/20 10/02/20 10/02/20 Range/Units 03:30 03:30 05:10 [place] # (Auto) 0.84 H (0.11-0.59) K/uL Immature Gran # (Auto) 0.04 H (0.00-0.02) K/uL Chloride 108 H (98-107) mmol/L Glucose 106 H (70-99) mg/dl AST 46 H (15-37) U/L ALT 119 H (12-78) U/L C-Reactive Protein 0.49 H (0-0.29) mg/dl TSH 4.560 H (0.300-4.500) uIu/ml U Marijuana (THC) Screen Pos H (Neg) Diagnostic Findings MRI brain -Symmetric areas of restricted diffusion involving the bilateral posterior frontal centrum semiovale. Findings suggest an acute leukoencephalopathy of uncertain etiology versus infarcts. Clinical correlation and comparison to prior studies would be helpful to assess for chronicity.
--- NOTE | 2020-10-02 22:06 | Progress Notes ---
DATE: 10/02/2020 This accompanies Judie Greene's note. HISTORY OF PRESENT ILLNESS: The patient is seen and evaluated. He has a history of at least 2 episodes in the past at the ages of 10 and 14 of episode of dysarthria, left tongue and perioral tingling, and left arm tingling. These spells lasted about an hour, were not accompanied by headache, and when they occurred tended to occur in multiple attacks. Both times, imaging showed diffusion weighted abnormalities bilaterally in the deep white matter, which were nonenhancing. This examiner does not know if the images ever improved significantly, although I can see on prior imaging significant involvement of the corpus callosum, which I do not see on current imaging. This patient has had extensive evaluation in the past including multiple lumbar punctures, I believe all of which tested negative for multiple sclerosis. It was thought that he had ADEM versus white matter changes related to CMT. Ultimately, he was diagnosed with X-linked CMT. There is no family history of a similar disorder, no family history of early vascular disease. The patient has a personal history of migraine, which occurs rarely and has never been accompanied by neurologic symptoms. On this admission, he had an episode of dysarthria, perioral numbness, numbness in the left tongue, left facial droop, and left arm paresthesias lasting less than an hour. The episode recurred while hospitalized, also short duration, again no headache. He was ill about a month ago, which may have been COVID, although he was tested 14 days thereafter and was tested negative. However, his mother and father both had COVID. Prior episodes were preceded by appendicitis and mononucleosis. PHYSICAL EXAMINATION: He is awake and alert. His pupils are equal. I grossly had difficulty visualizing the optic nerves. There was no afferent pupillary defect. Normal motility, visual knapp, facial sensation and facial symmetry. Motor: There is distal atrophy of the lower extremities. Feet are high arched. No carotid bruits, no heart murmurs. There is full strength in the uppers. The TA and the peroneus longus are relatively weak compared to the posterior tibial and gastroc. They are approximately 3/5. He is areflexic in the lower. Htisul-nd-eiif is mildly tremulous. Yyrc-eh-ebmf is normal. Gait is steppage. Vibration is present at the toes. Temperature appeared intact. IMPRESSION AND PLAN: 1. This patient has a leukodystrophy. Whether or not this has waxed or waned or changed with these clinical episodes of tingling, facial droop, dysarthria is unclear to this examiner. His current imaging shows similar, at least qualitatively, compared to prior imaging. Plan, recommend MRI of the cervical spine which appears to not have been done in the past. It is unclear to me whether or not these episodes are something like acephalgic migrainous phenomenon and whether the imaging study abnormalities are incidental and related to a leukoencephalopathy related to the patient's CMT. That having been said, the patient indicates that the other time he responded well to intravenous steroids were several days followed by a steroid taper. This is not unreasonable. I would recommend 3 days of IV Solu-Medrol 1000 mg over an hour and then followed by a prednisone taper. He can stay in the hospital overnight for the first round of steroids and then be discharged to continue the IV steroids on an outpatient basis, possibly in the medical treatment unit. Again, I think the possibility exists that there may be something else causing these spells and that the imaging is static. Repeating the MRI of the brain at some point in the next month or so may be reasonable. I have communicated with Dr. Raven Grant, she is the specialist in demyelinating disease in our practice. She will be setting up an appointment to see the patient. 2. Wsuxpmw-Ycyig-Jvezt, X-linked, no specific therapy. 3. The patient reports a family history of muscular dystrophy in at least one male relative on his mother's side. I suspect that is CMT as well. We will follow with you. MTDD
[2020-10-02 23:51] VITALS: O2SAT 96
[2020-10-03 07:59] VITALS: BP 127/81; PULSE 75; TEMP 97.9
[2020-10-03 08:41] LABS: BUN Creatinine Ratio 16.2 (10-20); Calcium 9.2 mg/dl (8.5-10.1); Est GFR (African American) 115.7; Est GFR (Non-African American) 99.8; Potassium 3.9 mmol/L (3.5-5.1)
[2020-10-03] MEDS ORDERED: methylPREDNISolone 1,000 MG in DEXTROSE 5% 250 ML IV SCH (10:30)
--- NOTE | 2020-10-03 10:59 | Magnetic Resonance Report ---
MRI OF THE CERVICAL SPINE COMBO CLINICAL HISTORY: Demyelinating disorder. COMPARISON STUDY: No priors. TECHNIQUE: MRI of the cervical spine is performed utilizing various T1 and T2-weighted sequences in t he axial and sagittal planes. Contrast-enhanced sequences are acquired following the IV administratio n of 9.8 mL of Gadavist. FINDINGS: Cervical spine: Vertebral body height and alignment are maintained throughout the cervical spine. The re is straightening of the cervical lordosis. Normal marrow signal intensity is maintained. The atlan todental articulation is preserved. The spinous processes appear intact. No destructive bony lesion i s seen. Intervertebral discs: There is minimal degenerative disc desiccation. The disc spaces are preserved. Spinal cord: The cervical spinal cord is normal in morphology and signal intensity. No abnormal postc ontrast enhancement is identified. C2-C3: Mild facet arthropathy is of no consequence. The central canal and neural foramina are patent. C3-C4: Facet arthropathy causes minimal right-sided neural foraminal narrowing. The central canal is clear. C4-C5: A posterior disc osteophyte complex eccentric to the right effaces the ventral subarachnoid sp hema. In conjunction with facet arthropathy this causes mild to moderate right neural foraminal stenos is. The left neural foramen is clear. C5-C6: Uncovertebral and facet arthropathy cause moderate right neural foraminal narrowing. The left neural foramen and the central canal are clear. C6-C7: Uncovertebral and facet arthropathy cause minimal bilateral neural foraminal narrowing. The ce ntral canal is clear. C7-T1: Unremarkable. Soft tissues: The prevertebral and paraspinous soft tissues are normal as imaged. Brain parenchyma: Partially visualized brain parenchyma at the skull base is normal in appearance. IMPRESSION: 1. The cervical spinal cord is normal in morphology and signal intensity. No abnormal postcontrast en hancement is identified. 2. Minimal spondylotic change as above. See discussion for detailed level by level analysis. 3. No destructive bony process is identified. Dictated: 10/03/2020 9:48 AM Transcribed: 10/03/2020 10:16 AM Jesi [id number] [facility] Electronically signed by: Dominick Locke M.D. 10/03/2020 10:58 AM
--- NOTE | 2020-10-03 17:16 | Discharge Summary ---
Date of Service October 03, 2020 Admission HPI Per Admitting Provider Renato Schultz is a pleasant 25 yo CM who presented to the ER early this AM with complaints of Aphasia and slurred speech. 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 His first episode was in 2004 following a bout of infectious mononucleosis, and his second episode was in 2008 following an appendectomy. He has been seeing [facility] since 2004, and does have multiple brain MRI exams some of which show leukoenceophalopathy, and some of which show resolution of this finding. In regards to his current episode, he states that he had a single alcoholic beverage last night, and developed symptoms while playing video games at approximately 2 AM. He states he noted slurring of his words, and noticed left sided face numbness. He states, "out of an abundance of caution," he presented to the ER. Upon arrival, he was noted to have a normal physical exam. His lab numbers were unremarkable, however, an MRI of the brain did show findings of jam koencephalopathy. The ER did notify Dr. Lord of [facility], and the MRI images were sent to [facility] for review. At the time I saw the patient, he was feeling better, and states his symptoms had resolved. He denies any headaches, seizures, syncope, fevers, excessive alcohol consumption, or trauma. He admits to smoking marijuana approximately 48 hours prior to his episode, but denies any further drug use. His Covid test in the ER was normal. He denies any other symptoms at this time. Principal Diagnosis Acute leukoencephalopathy Discharge Exam Constitutional WD/WN, vitals as above Eyes EOM intact bilaterally; no conjunctival abnormality ENMT external ear and nose normal, oropharynx normal Neck trachea midline, no thyromegaly normal visual inspection Respiratory normal respiratory effort, lungs clear to auscultation no respiratory distress Cardiovascular RRR, no murmur, no edema Gastrointestinal (Abdomen) Inspection/Auscultation: abdomen normal to inspection; abdomen not distended Musculoskeletal no cyanosis or clubbing, extremities motor strength 5/5 Skin no rashes, warm and dry Neurologic moves all extremities and awake Speech / Cognition: + expressive aphasia Psychiatric Orientation: alert, oriented to person and cooperative Discharge Data Allergies Allergy/AdvReac Type Severity Reaction Status Date / Time amoxicillin Allergy HIVES Verified 10/02/20 04:18 clavulanic acid Allergy HIVES Verified 10/02/20 04:18 Consultations 10/02/20 08:22 ED Decision to Admit Stat 10/02/20 10:43 Consult Neurology Routine Ordered Studies 10/02/20 04:49 MR brain wo/w con Urgent 10/02/20 12:31 MR cervical spine wo/w con Routine Hospital Course (1) Leukoencephalopathy: 1. treat with IV solumetrol 1 g x 3 days- out patient infusion could be arranged. dose 1 today, then tomorrow and 3rd could be outpatient 2. day after third infusion start prednisone 80 mg x 2 days, then 60 mg x 4 days, then 40 mg x 4 days, then 20 mg x4 days, then 10 mg x 4 days then stop 3. MRI brain reviewed an pushed to [facility] for further comparison 4. MRI c spine r/o any further plaques or lesions 5. follow up with neurology will be arranged with Dr Grant at [facility] in out patient setting 6. discharge when medically stable Arranged for [facility] infusions of SoluMedrol 1 g IV daily x 2 more days, and script sent for prednisone on discharge. Cleared for discharge by [facility] attending. (2) Loanspz-Yllym-Ulccq disease: 1. continue current treatment plan can be assess at neurology visit as outpatient Total Time Total Time Spent Total Time Spent (In Minutes): 35 Discharge Plan Discharge Items Patient Disposition: Home - Self-Care Reason For Visit: SLURRED SPEECH Discharge Diagnosis: Slurred speech, acute leukoencephalopathy Activity: Resume your previous activity Non-emergency contact: Primary Care Provider Call non-emergency contact if: your symptoms worsen Follow-up/Referrals: Shanon Macedo MD [Primary Care Provider] - 10/17/20 10:20 am (You have an appt on 10/17 @ 1020am. If this appt does not fit your schedule, please call [phone] to reschedule. ) Judie Lord MD [Physician] - (Please see Dr. Grant in clinic within the week.) Diet: Regular Addtl Attending Provider Instructions: You were admitted for trouble speaking which is related to your acute leukoencephalopathy. We gave you your first dose of IV steroids to help this. [facility] the hospital tomorrow and at 7:30 am. On Friday, please start your steroid taper. It goes as follows: Prednisone 80 mg x 2 days, then 60 mg x 4 days, then 40 mg x 4 days, then 20 mg x4 days, then 10 mg x 4 days then stop. We are sending you 10 mg tablets, so in each day, take the number of mg divided by 10. (I.e. 8 tablets, then 6 tablets, then 4, 2, 1, then stop). Pending Studies at Discharge: No Stand-Alone Forms: My [facility] [employer], Work/School Release (Inpt), Smoking Cessation Medications and DC Order Prescriptions: New prednisone 10 mg tablet 80 mg PO DAILY Qty: 68 RF: 0 No Action No Known Home Medications RF: 0 Discharge Orders: Discharge Order (Routine); Ordered 10/03/20 Ordered By: Hank Bates Admission Data Admit Date/Time: 10/02/20 09:04 Attending Provider: Hank Bates Admit Provider: Ben Zaidi Primary Care Provider: Shanon Macedo Other Providers: Judie Lord ; Hank Bates Other Interventions: Discharge Summary Assessment (RN) Last Done: 10/03/20 14:02 Coding Level of Care Code 54149 OBS Care - Discharge Diagnoses Leukoencephalopathy G93.49 Ygalbll-Ihjsc-Rfgdb disease G60.0
[2020-10-03 22:44] LABS: Marijuana Quant, GCMS Urine 31 ng/mL (<5)
== END 2020-10-03 15:33 | disposition home or self-care (01) ==
LOC: 2N 03:24 → ED 03:24 → SUATTDRO 09:04 → 2N 09:04